=== PATIENT | male | born 1950 | race Caucasian/White ===

== ENCOUNTER → 2020-03-18 | Day surgery (SDC) | payer MEDICARE, OTHER ==
[~2020-03-18] MED LIST: AMLODIPINE BESYL5 MG PO; CETIRIZINE HCL10 MG PO; CHLORTHALIDONE25 MG PO; CYCLOBENZAPRINE10 MG PO; DAILY VALUE1 EACH PO; DIFLUCAN150 MG PO; FISH OIL 1,0001 EAC1 PO; FISH OIL 1,2001 EACH PO; FOLIC ACID 1 MG1 MG PO; FOLIC ACID1 MG PO; FONDAPARIN10 MG/0.8 SQ; HYGROTON TAB 2525 MG PO; IBU600 MG PO; JANTOVEN7.5 MG PO; LASIX TAB 20 MG20 MG GT; LAXATIVE PO; MULTI-VITAMIN1 EACH PO; MYSOLINE50 MG PO; NORVASC5 MG PO; POTASSIUM CHLO10 ME2 PO; POTASSIUM CHLO10 MEQ PO; PRAVACHOL40 MG PO; PRAVASTATIN SOD40 MG PO; PRIMIDONE50 MG PO; STOOL SOFTNER PO; VITAMIN B-121000 MCG PO; VITAMIN B-6100 MG PO; VITAMIN D325 MC6 PO; WARFARIN SODIU7.5 MG PO
== END | disposition home or self-care (01) ==
LOC: OR 05:45
DX: D12.7 Benign neoplasm of rectosigmoid junction (principal); D12.2 Benign neoplasm of ascending colon; D12.3 Benign neoplasm of transverse colon; N40.0 Benign prostatic hyperplasia without lower urinary tract symptoms; I10 Essential (primary) hypertension; D68.51 Activated protein C resistance; F32.9 Major depressive disorder, single episode, unspecified; K21.9 Gastro-esophageal reflux disease without esophagitis; E78.5 Hyperlipidemia, unspecified; I73.9 Peripheral vascular disease, unspecified; Z86.010 Personal history of colon polyps; Z87.891 Personal history of nicotine dependence; Z20.822 Contact with and (suspected) exposure to COVID-19; Z91.041 Radiographic dye allergy status; Z91.048 Other nonmedicinal substance allergy status; Z88.8 Allergy status to other drugs, medicaments and biological substances; Z79.01 Long term (current) use of anticoagulants; Z79.899 Other long term (current) drug therapy
CPT/HCPCS: J2704; J7120

== ENCOUNTER → 2020-03-21 | Outpatient (CLI) | payer MEDICARE, OTHER ==
[~2020-03-21] VITALS: Ht 188 cm; Wt 102.1 kg
== END ==
LOC: OPSV 12:30
DX: I82.409 Acute embolism and thrombosis of unspecified deep veins of unspecified lower extremity (principal)
CPT/HCPCS: 96372; J1652

== ENCOUNTER → 2020-07-29 | Outpatient (CLI) | payer MEDICARE, OTHER | LOC: WCC 09:00 | DX: L97.422 Non-pressure chronic ulcer of left heel and midfoot with fat layer exposed (principal); L97.512 Non-pressure chronic ulcer of other part of right foot with fat layer exposed; I82.409 Acute embolism and thrombosis of unspecified deep veins of unspecified lower extremity; I73.9 Peripheral vascular disease, unspecified; I25.10 Atherosclerotic heart disease of native coronary artery without angina pectoris; G62.9 Polyneuropathy, unspecified | CPT/HCPCS: 87070; 87077; 87186; 87205; G0463 ==

== ENCOUNTER → 2020-08-05 | Outpatient (CLI) | payer MEDICARE, OTHER | LOC: WCC 08:07 | DX: L97.412 Non-pressure chronic ulcer of right heel and midfoot with fat layer exposed (principal); L97.512 Non-pressure chronic ulcer of other part of right foot with fat layer exposed; I25.10 Atherosclerotic heart disease of native coronary artery without angina pectoris; I73.9 Peripheral vascular disease, unspecified; G90.09 Other idiopathic peripheral autonomic neuropathy; D68.2 Hereditary deficiency of other clotting factors; B96.5 Pseudomonas (aeruginosa) (mallei) (pseudomallei) as the cause of diseases classified elsewhere; Z88.5 Allergy status to narcotic agent; Z88.8 Allergy status to other drugs, medicaments and biological substances; Z79.2 Long term (current) use of antibiotics ==

== ENCOUNTER → 2020-08-07 | Outpatient (CLI) | payer MEDICARE | LOC: US 14:42 | DX: L97.312 Non-pressure chronic ulcer of right ankle with fat layer exposed (principal); I25.10 Atherosclerotic heart disease of native coronary artery without angina pectoris; I73.9 Peripheral vascular disease, unspecified; G90.09 Other idiopathic peripheral autonomic neuropathy; B96.5 Pseudomonas (aeruginosa) (mallei) (pseudomallei) as the cause of diseases classified elsewhere; D68.2 Hereditary deficiency of other clotting factors; R59.0 Localized enlarged lymph nodes | CPT/HCPCS: 93922; 93925 ==

== ENCOUNTER → 2020-08-13 | Outpatient (CLI) | payer MEDICARE | LOC: WCC 08:12 | DX: L97.516 Non-pressure chronic ulcer of other part of right foot with bone involvement without evidence of necrosis (principal); L97.412 Non-pressure chronic ulcer of right heel and midfoot with fat layer exposed; I25.10 Atherosclerotic heart disease of native coronary artery without angina pectoris; I73.9 Peripheral vascular disease, unspecified; G90.09 Other idiopathic peripheral autonomic neuropathy; B96.5 Pseudomonas (aeruginosa) (mallei) (pseudomallei) as the cause of diseases classified elsewhere; D68.2 Hereditary deficiency of other clotting factors; Z88.5 Allergy status to narcotic agent; Z88.8 Allergy status to other drugs, medicaments and biological substances; Z79.2 Long term (current) use of antibiotics ==

== ENCOUNTER → 2020-08-14 | Outpatient (CLI) | payer MEDICARE, OTHER | LOC: RAD 14:06 | DX: L97.312 Non-pressure chronic ulcer of right ankle with fat layer exposed (principal); L97.519 Non-pressure chronic ulcer of other part of right foot with unspecified severity | CPT/HCPCS: 73630 ==

== ENCOUNTER → 2020-08-19 | Outpatient (CLI) | payer MEDICARE, OTHER | LOC: WCC 08:09 | DX: I87.2 Venous insufficiency (chronic) (peripheral) (principal); L97.412 Non-pressure chronic ulcer of right heel and midfoot with fat layer exposed; L97.512 Non-pressure chronic ulcer of other part of right foot with fat layer exposed; I25.10 Atherosclerotic heart disease of native coronary artery without angina pectoris; I73.9 Peripheral vascular disease, unspecified; G90.09 Other idiopathic peripheral autonomic neuropathy; D68.2 Hereditary deficiency of other clotting factors; B96.5 Pseudomonas (aeruginosa) (mallei) (pseudomallei) as the cause of diseases classified elsewhere; Z88.5 Allergy status to narcotic agent; Z88.8 Allergy status to other drugs, medicaments and biological substances; Z79.01 Long term (current) use of anticoagulants ==

== ENCOUNTER → 2020-09-02 | Outpatient (CLI) | payer MEDICARE, OTHER | LOC: WCC 07:16 | DX: L97.512 Non-pressure chronic ulcer of other part of right foot with fat layer exposed (principal); L97.312 Non-pressure chronic ulcer of right ankle with fat layer exposed; I73.9 Peripheral vascular disease, unspecified; I25.10 Atherosclerotic heart disease of native coronary artery without angina pectoris; G90.09 Other idiopathic peripheral autonomic neuropathy; B96.5 Pseudomonas (aeruginosa) (mallei) (pseudomallei) as the cause of diseases classified elsewhere; D68.2 Hereditary deficiency of other clotting factors; D68.51 Activated protein C resistance; Z79.01 Long term (current) use of anticoagulants ==

== ENCOUNTER → 2020-09-09 | Outpatient (CLI) | payer MEDICARE, OTHER | LOC: WCC 08:02 | DX: L97.412 Non-pressure chronic ulcer of right heel and midfoot with fat layer exposed (principal); L97.512 Non-pressure chronic ulcer of other part of right foot with fat layer exposed; I25.10 Atherosclerotic heart disease of native coronary artery without angina pectoris; I73.9 Peripheral vascular disease, unspecified; G90.09 Other idiopathic peripheral autonomic neuropathy; D68.2 Hereditary deficiency of other clotting factors; B96.5 Pseudomonas (aeruginosa) (mallei) (pseudomallei) as the cause of diseases classified elsewhere; Z88.5 Allergy status to narcotic agent; Z88.8 Allergy status to other drugs, medicaments and biological substances; Z79.01 Long term (current) use of anticoagulants ==

== ENCOUNTER → 2020-09-16 | Outpatient (CLI) | payer MEDICARE, OTHER | LOC: WCC 08:00 | DX: L97.515 Non-pressure chronic ulcer of other part of right foot with muscle involvement without evidence of necrosis (principal); L97.412 Non-pressure chronic ulcer of right heel and midfoot with fat layer exposed; I25.10 Atherosclerotic heart disease of native coronary artery without angina pectoris; I73.9 Peripheral vascular disease, unspecified; G90.09 Other idiopathic peripheral autonomic neuropathy; D68.2 Hereditary deficiency of other clotting factors; B96.5 Pseudomonas (aeruginosa) (mallei) (pseudomallei) as the cause of diseases classified elsewhere; Z88.5 Allergy status to narcotic agent; Z88.8 Allergy status to other drugs, medicaments and biological substances; Z79.01 Long term (current) use of anticoagulants ==

== ENCOUNTER → 2020-09-23 | Outpatient (CLI) | payer MEDICARE, OTHER | LOC: WCC 08:16 | DX: L97.512 Non-pressure chronic ulcer of other part of right foot with fat layer exposed (principal); L97.312 Non-pressure chronic ulcer of right ankle with fat layer exposed; I25.10 Atherosclerotic heart disease of native coronary artery without angina pectoris; I73.9 Peripheral vascular disease, unspecified; B96.5 Pseudomonas (aeruginosa) (mallei) (pseudomallei) as the cause of diseases classified elsewhere; D68.2 Hereditary deficiency of other clotting factors; G90.09 Other idiopathic peripheral autonomic neuropathy; D68.51 Activated protein C resistance; Z79.01 Long term (current) use of anticoagulants; Z88.8 Allergy status to other drugs, medicaments and biological substances; Z88.5 Allergy status to narcotic agent ==

== ENCOUNTER → 2020-09-30 | Outpatient (CLI) | payer MEDICARE, OTHER | LOC: WCC 08:14 | DX: I87.2 Venous insufficiency (chronic) (peripheral) (principal); L97.412 Non-pressure chronic ulcer of right heel and midfoot with fat layer exposed; L97.512 Non-pressure chronic ulcer of other part of right foot with fat layer exposed; I25.10 Atherosclerotic heart disease of native coronary artery without angina pectoris; I73.9 Peripheral vascular disease, unspecified; G90.09 Other idiopathic peripheral autonomic neuropathy; D68.2 Hereditary deficiency of other clotting factors; B96.5 Pseudomonas (aeruginosa) (mallei) (pseudomallei) as the cause of diseases classified elsewhere; Z88.5 Allergy status to narcotic agent; Z88.8 Allergy status to other drugs, medicaments and biological substances; Z79.01 Long term (current) use of anticoagulants; Z79.2 Long term (current) use of antibiotics ==

== ENCOUNTER → 2020-10-07 | Outpatient (CLI) | payer MEDICARE, OTHER | LOC: WCC 08:09 | DX: I87.2 Venous insufficiency (chronic) (peripheral) (principal); L97.415 Non-pressure chronic ulcer of right heel and midfoot with muscle involvement without evidence of necrosis; L97.515 Non-pressure chronic ulcer of other part of right foot with muscle involvement without evidence of necrosis; I25.10 Atherosclerotic heart disease of native coronary artery without angina pectoris; I73.9 Peripheral vascular disease, unspecified; G90.09 Other idiopathic peripheral autonomic neuropathy; B96.5 Pseudomonas (aeruginosa) (mallei) (pseudomallei) as the cause of diseases classified elsewhere; D68.2 Hereditary deficiency of other clotting factors; Z88.5 Allergy status to narcotic agent; Z88.8 Allergy status to other drugs, medicaments and biological substances; Z79.01 Long term (current) use of anticoagulants; Z79.2 Long term (current) use of antibiotics ==

== ENCOUNTER → 2020-10-15 | Outpatient (CLI) | payer MEDICARE, OTHER | LOC: WCC 08:09 | DX: I87.2 Venous insufficiency (chronic) (peripheral) (principal); L97.415 Non-pressure chronic ulcer of right heel and midfoot with muscle involvement without evidence of necrosis; L97.515 Non-pressure chronic ulcer of other part of right foot with muscle involvement without evidence of necrosis; I25.10 Atherosclerotic heart disease of native coronary artery without angina pectoris; I73.9 Peripheral vascular disease, unspecified; G90.9 Disorder of the autonomic nervous system, unspecified; D68.2 Hereditary deficiency of other clotting factors; B96.5 Pseudomonas (aeruginosa) (mallei) (pseudomallei) as the cause of diseases classified elsewhere; Z88.8 Allergy status to other drugs, medicaments and biological substances; Z79.01 Long term (current) use of anticoagulants; Z79.2 Long term (current) use of antibiotics ==

== ENCOUNTER → 2020-10-28 | Outpatient (CLI) | payer MEDICARE, OTHER | LOC: WCC 07:57 | DX: I87.2 Venous insufficiency (chronic) (peripheral) (principal); L97.412 Non-pressure chronic ulcer of right heel and midfoot with fat layer exposed; L97.512 Non-pressure chronic ulcer of other part of right foot with fat layer exposed; I25.10 Atherosclerotic heart disease of native coronary artery without angina pectoris; I73.9 Peripheral vascular disease, unspecified; G90.09 Other idiopathic peripheral autonomic neuropathy; D68.2 Hereditary deficiency of other clotting factors; B96.5 Pseudomonas (aeruginosa) (mallei) (pseudomallei) as the cause of diseases classified elsewhere; Z88.5 Allergy status to narcotic agent; Z88.8 Allergy status to other drugs, medicaments and biological substances; Z79.01 Long term (current) use of anticoagulants; Z79.2 Long term (current) use of antibiotics ==

== ENCOUNTER → 2020-11-11 | Outpatient (CLI) | payer MEDICARE, OTHER | LOC: WCC 07:55 | DX: I87.2 Venous insufficiency (chronic) (peripheral) (principal); L97.412 Non-pressure chronic ulcer of right heel and midfoot with fat layer exposed; L97.512 Non-pressure chronic ulcer of other part of right foot with fat layer exposed; I25.10 Atherosclerotic heart disease of native coronary artery without angina pectoris; I73.9 Peripheral vascular disease, unspecified; G90.09 Other idiopathic peripheral autonomic neuropathy; D68.2 Hereditary deficiency of other clotting factors; B96.5 Pseudomonas (aeruginosa) (mallei) (pseudomallei) as the cause of diseases classified elsewhere; Z88.5 Allergy status to narcotic agent; Z88.8 Allergy status to other drugs, medicaments and biological substances; Z79.01 Long term (current) use of anticoagulants ==

== ENCOUNTER → 2020-12-06 | Outpatient (CLI) | payer MEDICARE, OTHER | END | disposition home or self-care (01) | LOC: WCC 07:40 | PROC: 0JBQ0ZZ Excision of Right Foot Subcutaneous Tissue and Fascia, Open Approach (ICD-10-PCS; principal; 2020-12-06) | DX: L97.312 Non-pressure chronic ulcer of right ankle with fat layer exposed (principal); I25.10 Atherosclerotic heart disease of native coronary artery without angina pectoris; I73.9 Peripheral vascular disease, unspecified; D68.51 Activated protein C resistance; G90.09 Other idiopathic peripheral autonomic neuropathy; B96.5 Pseudomonas (aeruginosa) (mallei) (pseudomallei) as the cause of diseases classified elsewhere; D68.2 Hereditary deficiency of other clotting factors; Z86.718 Personal history of other venous thrombosis and embolism; Z79.01 Long term (current) use of anticoagulants; Z79.1 Long term (current) use of non-steroidal anti-inflammatories (NSAID); Z79.899 Other long term (current) drug therapy; Z88.5 Allergy status to narcotic agent; Z88.8 Allergy status to other drugs, medicaments and biological substances ==

== ENCOUNTER → 2020-12-19 | Outpatient (CLI) | payer MEDICARE, OTHER | LOC: WCC 07:28 | DX: I87.2 Venous insufficiency (chronic) (peripheral) (principal); L97.412 Non-pressure chronic ulcer of right heel and midfoot with fat layer exposed; I25.10 Atherosclerotic heart disease of native coronary artery without angina pectoris; I73.9 Peripheral vascular disease, unspecified; G90.09 Other idiopathic peripheral autonomic neuropathy; B96.5 Pseudomonas (aeruginosa) (mallei) (pseudomallei) as the cause of diseases classified elsewhere; D68.2 Hereditary deficiency of other clotting factors; Z88.8 Allergy status to other drugs, medicaments and biological substances; Z88.5 Allergy status to narcotic agent; Z79.01 Long term (current) use of anticoagulants; Z79.899 Other long term (current) drug therapy ==

== ENCOUNTER → 2021-01-06 | Outpatient (CLI) | payer MEDICARE, OTHER | END | disposition home or self-care (01) | LOC: WCC 07:26 | DX: L97.512 Non-pressure chronic ulcer of other part of right foot with fat layer exposed (principal); L97.312 Non-pressure chronic ulcer of right ankle with fat layer exposed; I73.9 Peripheral vascular disease, unspecified; I25.10 Atherosclerotic heart disease of native coronary artery without angina pectoris; G90.09 Other idiopathic peripheral autonomic neuropathy; B96.5 Pseudomonas (aeruginosa) (mallei) (pseudomallei) as the cause of diseases classified elsewhere; D68.2 Hereditary deficiency of other clotting factors ==

== ENCOUNTER → 2021-01-20 | Outpatient (CLI) | payer MEDICARE, OTHER | LOC: WCC 07:26 | DX: L97.512 Non-pressure chronic ulcer of other part of right foot with fat layer exposed (principal); I25.10 Atherosclerotic heart disease of native coronary artery without angina pectoris; I73.9 Peripheral vascular disease, unspecified; G90.09 Other idiopathic peripheral autonomic neuropathy; B96.5 Pseudomonas (aeruginosa) (mallei) (pseudomallei) as the cause of diseases classified elsewhere; D68.2 Hereditary deficiency of other clotting factors; Z79.01 Long term (current) use of anticoagulants; Z88.6 Allergy status to analgesic agent; Z88.1 Allergy status to other antibiotic agents ==

== ENCOUNTER → 2021-02-10 | Outpatient (CLI) | payer MEDICARE, OTHER | END | disposition home or self-care (01) | LOC: WCC 07:22 | DX: I87.2 Venous insufficiency (chronic) (peripheral) (principal); L97.412 Non-pressure chronic ulcer of right heel and midfoot with fat layer exposed; L97.812 Non-pressure chronic ulcer of other part of right lower leg with fat layer exposed; I25.10 Atherosclerotic heart disease of native coronary artery without angina pectoris; I73.9 Peripheral vascular disease, unspecified; G90.09 Other idiopathic peripheral autonomic neuropathy; B96.5 Pseudomonas (aeruginosa) (mallei) (pseudomallei) as the cause of diseases classified elsewhere; D68.2 Hereditary deficiency of other clotting factors; Z79.01 Long term (current) use of anticoagulants; Z79.1 Long term (current) use of non-steroidal anti-inflammatories (NSAID); Z79.899 Other long term (current) drug therapy ==

== ENCOUNTER → 2021-03-03 | Outpatient (CLI) | payer MEDICARE, OTHER | END | disposition home or self-care (01) | LOC: WCC 07:24 | DX: I87.2 Venous insufficiency (chronic) (peripheral) (principal); L97.411 Non-pressure chronic ulcer of right heel and midfoot limited to breakdown of skin; L97.512 Non-pressure chronic ulcer of other part of right foot with fat layer exposed; I73.9 Peripheral vascular disease, unspecified; I25.10 Atherosclerotic heart disease of native coronary artery without angina pectoris; G90.09 Other idiopathic peripheral autonomic neuropathy; B96.5 Pseudomonas (aeruginosa) (mallei) (pseudomallei) as the cause of diseases classified elsewhere; D68.2 Hereditary deficiency of other clotting factors; Z79.1 Long term (current) use of non-steroidal anti-inflammatories (NSAID); Z79.01 Long term (current) use of anticoagulants; Z79.899 Other long term (current) drug therapy | CPT/HCPCS: 97597 ==

== ENCOUNTER → 2021-03-31 | Outpatient (CLI) | payer MEDICARE, OTHER | END | disposition home or self-care (01) | LOC: WCC 07:24 | DX: I87.2 Venous insufficiency (chronic) (peripheral) (principal); L97.512 Non-pressure chronic ulcer of other part of right foot with fat layer exposed; I25.10 Atherosclerotic heart disease of native coronary artery without angina pectoris; I73.9 Peripheral vascular disease, unspecified; G90.09 Other idiopathic peripheral autonomic neuropathy; D68.2 Hereditary deficiency of other clotting factors; B96.5 Pseudomonas (aeruginosa) (mallei) (pseudomallei) as the cause of diseases classified elsewhere; Z79.01 Long term (current) use of anticoagulants; Z79.1 Long term (current) use of non-steroidal anti-inflammatories (NSAID); Z79.899 Other long term (current) drug therapy ==